=== PATIENT | male | born 1950 | race Caucasian/White ===

== ENCOUNTER 2017-09-04 19:12 | Emergency (ER) | payer BC, MEDICARE ==
[2017-09-04] MEDS ORDERED: Albuterol/Ipratropium NEB.SOL* Albuterol 2.5 MG/Ipratropium 0.5 MG 3 ML INH ONE (20:52)
[2017-09-04] MEDS ORDERED: NS 0.9% 1000 ML* 1,000 ML IV SCH (21:00)
[2017-09-04 21:19] LABS: Hematocrit 48 % (42-52); Hemoglobin 16.4 g/dl (14.0-18.0); Mean Corpuscular HGB Conc 34 g/dl (31-36); Mean Corpuscular Hemoglobin 32 pg (27-31); Mean Corpuscular Volume 94 fL (80-94); Mean Platelet Volume 8 um3 (7.4-10.4); Red Blood Count 5.08 10^6/ul (4.0-5.4); Red Cell Distribution Width 14 % (10.5-15); White Blood Count 13.5 10^3/ul (3.5-10.8)
[2017-09-04 21:23] LABS: Add Diff/Slide Review? Slide Review Added; Comments Flag Yes
--- NOTE | 2017-09-04 21:23 | RAD ---
INDICATION: Shortness of breath. COMPARISON: Comparison is made with a prior study from October 22, 2016. TECHNIQUE: A portable view of the chest was obtained. FINDINGS: Cardiac and mediastinal contours appear to be within normal limits. The lungs are hyperinflated. There is mild prominence of the interstitial markings. No focal infiltrate or pleural effusion is seen. IMPRESSION: MILD INTERSTITIAL PROMINENCE SUGGESTING THE POSSIBILITY OF MILD INTERSTITIAL PULMONARY EDEMA.
[2017-09-04 21:35] LABS: Albumin 4.3 g/dL (3.2-5.2); BUN/Creatinine Ratio 15.8 (8-20); C Reactive Protein 165.84 mg/L (< 5.00); Calcium 9.7 mg/dL (8.6-10.3); EGFR African American 102.3 (>60); EGFR Non-African American 79.6 (>60); Globulin 3.5 g/dL (2-4); Magnesium 2.3 mg/dL (1.9-2.7); Potassium 4.2 mmol/L (3.5-5.0); Total Bilirubin 2.1 mg/dL (0.2-1.0); Total Protein 7.8 g/dL (6.4-8.9)
[2017-09-04 21:37] LABS: Troponin I 0.01 ng/mL (<0.04)
[2017-09-04 21:57] LABS: TSH (Thyroid Stimulating Horm) 2.36 mcIU/mL (0.34-5.60)
[2017-09-04] MEDS ORDERED: Albuterol HFA INHALER* 8 gm MDI INH PRN (23:01)
[2017-09-04 23:15] VITALS: BP 157/64
--- NOTE | 2017-09-04 23:25 | ED ---
Jean Garcia Nilda, scribed for Bernardo Santos MD on 09/04/17 at 2120 . Shortness of Breath - HPI Summary HPI Summary: This patient is a 66 year old M presenting to [facility] with a chief complaint of constant SOB for 1 week that has been worsening for the past 3 days. The patient rates the pain 2/10 in severity. Symptoms aggravated by exertion and alleviated by nothing. Patient reports productive cough (brown), fever, chills, diaphoresis, wheezing, chest tightness, MCCOY, and JIMENEZ. Patient denies ear ache, sore throat, and LOC. PMHx COPD. No PMHx PNA, DM, and HTN. - History of Current Complaint Chief Complaint: EDShortnessOfBreath Time Seen by Provider: 09/04/17 21:01 Hx Obtained From: Patient Onset/Duration: Sudden Onset Timing: Constant Current Severity: Moderate Dyspnea At: Exertion Aggrevating Factors: Movement Alleviating Factors: Nothing Associated Signs & Symptoms: Cough (Productive), Fever, Chills, Diaphoresis - Allergy/Home Medications Allergies/Adverse Reactions: Allergies Allergy/AdvReac Type Severity Reaction Status Date / Time No Known Allergies Allergy Verified 09/04/17 18:42 PMH/Surg Hx/FS Hx/Imm Hx Endocrine/Hematology History: Denies: Hx Diabetes Cardiovascular History: Denies: Hx Hypertension Respiratory History: Reports: Hx Chronic Obstructive Pulmonary Disease (COPD) - UNDAGNOSED Denies: Hx Pneumonia Sensory History: Reports: Hx Contacts or Glasses Opthamlomology History: Reports: Hx Contacts or Glasses Infectious Disease History: No Infectious Disease History: Denies: History Other Infectious Disease, Traveled Outside the [place] in Last 30 Days - Family History Known Family History: Positive: Diabetes - Social History Occupation: Employed Full-time Alcohol Use: Weekly Substance Use Type: Reports: None Smoking Status (MU): Heavy Every Day Tobacco Smoker Type: Cigarettes Amount Used/How Often: 1 pack daily Have You Smoked in the Last Year: Yes Review of Systems Positive: Fever, Chills, Skin Diaphoresis Negative: Sore Throat, Ear Ache Positive: Shortness Of Breath, Cough, Other - wheezing, chest tightness, JIMENEZ Neurological: Other - negative LOC Positive: Headache All Other Systems Reviewed And Are Negative: Yes Physical Exam - Summary Physical Exam Summary: Appearance: Plethora, Well-nourished, Obese Eyes: Normal ENT: Normal Neck: Supple, nontender Respiratory: Distant breath sounds, expiratory wheezes Cardiovascular: Distant heart sounds Abdomen: Soft, nontender Bowel: Present Musculoskeletal: Normal, Strength/ROM Intact, no edema Neurological:k Normal, A&Ox3 Psychiatric: Normal Triage Information Reviewed: Yes Vital Signs On Initial Exam: Initial Vitals Temp Pulse Resp BP Pulse Ox 99.6 F 96 24 186/78 95 09/04/17 19:19 09/04/17 19:19 09/04/17 19:19 09/04/17 19:19 09/04/17 19:19 Vital Signs Reviewed: Yes - [place] Coma Scale Coma Scale Total: 15 Diagnostics - Vital Signs Vital Signs Temp Pulse Resp BP Pulse Ox 09/04/17 21:00 92 24 151/57 96 09/04/17 20:30 91 22 159/70 96 09/04/17 20:00 94 21 144/68 96 09/04/17 19:53 102 24 155/70 96 09/04/17 19:47 100 21 96 09/04/17 19:19 99.6 F 96 24 186/78 95 - Laboratory Lab Results: Lab Results 09/04/17 09/04/17 09/04/17 Range/Units 21:05 21:05 21:05 WBC (3.5-10.8) 10^3/ul RBC (4.0-5.4) 10^6/ul Hgb (14.0-18.0) g/dl Hct (42-52) % MCV (80-94) fL MCH (27-31) pg MCHC (31-36) g/dl RDW (10.5-15) % Plt Count (150-450) 10^3/ul MPV (7.4-10.4) um3 Neut % (Auto) (38-83) % Lymph % (Auto) (25-47) % [place] % (Auto) (1-9) % Eos % (Auto) (0-6) % Baso % (Auto) (0-2) % Absolute Neuts (auto) (1.5-7.7) 10^3/ul Absolute Lymphs (auto) (1.0-4.8) 10^3/ul Absolute Monos (auto) (0-0.8) 10^3/ul Absolute Eos (auto) (0-0.6) 10^3/ul Absolute Basos (auto) (0-0.2) 10^3/ul Absolute Nucleated RBC 10^3/ul Nucleated RBC % INR (Anticoag Therapy) 0.87 L (0.89-1.11) APTT 27.5 (26.0-36.3) seconds D-Dimer, Quantitative 431 H (Less Than 230) ng/mL Sodium 132 L (133-145) mmol/L Potassium 4.2 (3.5-5.0) mmol/L Chloride 101 (101-111) mmol/L Carbon Dioxide 22 (22-32) mmol/L Anion Gap 9 (2-11) mmol/L BUN 15 (6-24) mg/dL Creatinine 0.95 (0.67-1.17) mg/dL Est GFR ( Amer) 102.3 (>60) Est GFR (Non-Af Amer) 79.6 (>60) BUN/Creatinine Ratio 15.8 (8-20) Glucose 111 H (70-100) mg/dL Lactic Acid (0.5-2.0) mmol/L Calcium 9.7 (8.6-10.3) mg/dL Magnesium 2.3 (1.9-2.7) mg/dL Total Bilirubin 2.10 H (0.2-1.0) mg/dL AST 19 (13-39) U/L ALT 18 (7-52) U/L Alkaline Phosphatase 77 (34-104) U/L Total Creatine Kinase 67 (10-223) U/L CK-MB (CK-2) 1.8 (0.6-6.3) ng/mL Troponin I 0.01 (<0.04) ng/mL C-Reactive Protein 165.84 H (< 5.00) mg/L B-Natriuretic Peptide 74 ( - 100) pg/mL Total Protein 7.8 (6.4-8.9) g/dL Albumin 4.3 (3.2-5.2) g/dL Globulin 3.5 (2-4) g/dL Albumin/Globulin Ratio 1.2 (1-3) Lipase 60 (11.0-82.0) U/L TSH 2.36 (0.34-5.60) mcIU/mL 09/04/17 09/04/17 Range/Units 21:05 21:05 WBC 13.5 H (3.5-10.8) 10^3/ul RBC 5.08 (4.0-5.4) 10^6/ul Hgb 16.4 (14.0-18.0) g/dl Hct 48 (42-52) % MCV 94 (80-94) fL MCH 32 H (27-31) pg MCHC 34 (31-36) g/dl RDW 14 (10.5-15) % Plt Count 179 (150-450) 10^3/ul MPV 8 (7.4-10.4) um3 Neut % (Auto) 72.5 (38-83) % Lymph % (Auto) 13.4 L (25-47) % [place] % (Auto) 13.2 H (1-9) % Eos % (Auto) 0.3 (0-6) % Baso % (Auto) 0.6 (0-2) % Absolute Neuts (auto) 9.8 H (1.5-7.7) 10^3/ul Absolute Lymphs (auto) 1.8 (1.0-4.8) 10^3/ul Absolute Monos (auto) 1.8 H (0-0.8) 10^3/ul Absolute Eos (auto) 0 (0-0.6) 10^3/ul Absolute Basos (auto) 0.1 (0-0.2) 10^3/ul Absolute Nucleated RBC 0.02 10^3/ul Nucleated RBC % 0.2 INR (Anticoag Therapy) (0.89-1.11) APTT (26.0-36.3) seconds D-Dimer, Quantitative (Less Than 230) ng/mL Sodium (133-145) mmol/L Potassium (3.5-5.0) mmol/L Chloride (101-111) mmol/L Carbon Dioxide (22-32) mmol/L Anion Gap (2-11) mmol/L BUN (6-24) mg/dL Creatinine (0.67-1.17) mg/dL Est GFR ( Amer) (>60) Est GFR (Non-Af Amer) (>60) BUN/Creatinine Ratio (8-20) Glucose (70-100) mg/dL Lactic Acid 0.8 (0.5-2.0) mmol/L Calcium (8.6-10.3) mg/dL Magnesium (1.9-2.7) mg/dL Total Bilirubin (0.2-1.0) mg/dL AST (13-39) U/L ALT (7-52) U/L Alkaline Phosphatase (34-104) U/L Total Creatine Kinase (10-223) U/L CK-MB (CK-2) (0.6-6.3) ng/mL Troponin I (<0.04) ng/mL C-Reactive Protein (< 5.00) mg/L B-Natriuretic Peptide ( - 100) pg/mL Total Protein (6.4-8.9) g/dL Albumin (3.2-5.2) g/dL Globulin (2-4) g/dL Albumin/Globulin Ratio (1-3) Lipase (11.0-82.0) U/L TSH (0.34-5.60) mcIU/mL Result Diagrams: 09/04/17 21:05 09/04/17 21:05 Lab Statement: Any lab studies that have been ordered have been reviewed, and results considered in the medical decision making process. - Radiology CXR Radiology Interpretation Completed By: Radiologist - CXR reveals mild interstitial prominence suggesting possibility of mild interstitial pulmonary edema. ED physician has reviewed this radiology report and agrees. Lateral CXR Radiology Interpretation Completed By: ED Physician - NAD. - EKG 2211 Cardiac Rate: NL - 94 bpm EKG Rhythm: Sinus Rhythm EKG Interpretation: No acute changes, possible old LA artifact Course/Dx - Course Course Of Treatment: This patient is a 66 year old M presenting to [facility] with a chief complaint of constant SOB for the past week that has been worsening for the past 3 days. The patient rates the pain 2/10 in severity. Symptoms aggravated by exertion and alleviated by nothing. Patient reports cough (brown) , fever, chills, diaphoresis, wheezing, chest tightness, MCCOY, and JIMENEZ. Patient denies ear ache, sore throat, and LOC. PMHx COPD. No PMHx PNA, DM, and HTN. CXR , per radiologist, reveals mild interstitial prominence suggesting possibility of mild interstitial pulmonary edema. EKG reveals no acute changes, NSR, 94 bpm , possible old LA artifact. Lateral CXR reveals NAD. Pt recieved breathing treatment (albuterol). Patient stable and will be D/C with a diagnosis of acute bronchitis and COPD exacerbation. Patient agreeable with this plan. - Diagnoses Provider Diagnoses: Acute bronchitis, COPD exacerbation Discharge - Discharge Plan Condition: Good Disposition: HOME Prescriptions: Budesonide/Formote 160/4.5(NF) [Symbicort 160/4.5 (NF)] 2 puff INH BID 60 Days Levofloxacin TAB* [Levaquin 500 Tab*] 500 mg PO DAILY #6 tab Referrals: No Primary Care Phys,NOPCP [Primary Care Provider] - The documentation as recorded by the Jean shell Nilda accurately reflects the service I personally performed and the decisions made by me, Bernardo Santos MD.
--- NOTE | 2017-09-05 07:45 | RAD ---
INDICATION: Fever and chills. Cough. Dyspnea. COMPARISON: September 04, 2017 TECHNIQUE: Single lateral view is submitted views were obtained. FINDINGS: There is hyperinflation with mild prominence of the interstitium. There is no focal consolidation. The lateral view shows no acute bony change. IMPRESSION: HYPERINFLATION WITH INTERSTITIAL PROMINENCE
== END 2017-09-04 23:15 | disposition home or self-care (01) ==
LOC: ED 19:12
DX: J20.9 Acute bronchitis, unspecified (principal); J44.1 Chronic obstructive pulmonary disease with (acute) exacerbation; R05 Cough; R50.9 Fever, unspecified; R06.00 Dyspnea, unspecified; R07.9 Chest pain, unspecified; F17.210 Nicotine dependence, cigarettes, uncomplicated; R00.0 Tachycardia, unspecified
CPT/HCPCS: 36415; 71010; 80053; 82550; 82553; 83605; 83690; 83735; 83880; 84443; 84484; 85025; 85379; 85610; 85730; 86140; 93005; 99212; 99283; A9270-GY; G0463

== ENCOUNTER 2019-03-11 12:20 | Emergency (ER) | payer BC, MEDICARE ==
[2019-03-11 12:34] VITALS: BP 176/76
--- NOTE | 2019-03-11 13:55 | UC ---
Respiratory Complaint HPI - HPI Summary HPI Summary: Pt presents with left side chest pain, pain worsens with deep breath, and coughing that began two days ago and worsened last night and this morning. Pt is a heavy everyday smoker, has cough, denies fever, chills. - History of Current Complaint Chief Complaint: UCRespiratory Stated Complaint: LEFT SIDE CHEST/BACK PAIN, CONGESTION Time Seen by Provider: 03/11/19 13:46 Hx Obtained From: Patient Onset/Duration: Sudden Onset, Lasting Days, Still Present Timing: Constant Severity Initially: Moderate Severity Currently: Mild Pain Intensity: 2 Character: Cough: Nonproductive Aggravating Factors: Exertion, Deep Breaths Associated Signs And Symptoms: Positive: Dyspnea, Wheezing, Nasal Congestion - Risk Factors Pulmonary Embolism Risk Factors: Smoking Cardiac Risk Factors: Smoking Pseudomonas Risk Factors: Chronic Lung Disease Tuberculosis Risk Factors: Smoking - Allergies/Home Medications Allergies/Adverse Reactions: Allergies Allergy/AdvReac Type Severity Reaction Status Date / Time No Known Allergies Allergy Verified 03/11/19 12:34 PMH/Surg Hx/FS Hx/Imm Hx Previously Healthy: Yes - Surgical History Surgical History: Yes Surgery Procedure, Year, and Place: T&A - Family History Known Family History: Positive: Diabetes, Respiratory Disease - Social History Occupation: Retired Lives: With Family Alcohol Use: Daily Substance Use Type: Marijuana Smoking Status (MU): Heavy Every Day Tobacco Smoker Type: Cigarettes Amount Used/How Often: 1 pack daily Have You Smoked in the Last Year: Yes Household Exposure Type: Cigarettes Review of Systems All Other Systems Reviewed And Are Negative: Yes Constitutional: Positive: Fatigue Skin: Positive: Negative Eyes: Positive: Negative ENT: Positive: Sinus Congestion Respiratory: Positive: Shortness Of Breath, Cough Cardiovascular: Positive: Chest Pain Gastrointestinal: Positive: Negative Genitourinary: Positive: Negative Motor: Positive: Negative Musculoskeletal: Positive: Myalgia Neurological: Positive: Negative Psychological: Positive: Negative Is Patient Immunocompromised?: No Physical Exam Triage Information Reviewed: Yes Appearance: Well-Appearing Vital Signs: Initial Vital Signs Temp 98.3 F 03/11/19 12:29 Pulse 94 03/11/19 12:29 Resp 18 03/11/19 12:29 BP 176/76 03/11/19 12:29 Pulse Ox 97 03/11/19 12:29 Vital Signs Reviewed: Yes Eye Exam: Normal ENT: Positive: Nasal congestion Dental Exam: Normal Neck exam: Normal Respiratory: Positive: Decreased breath sounds, Crackles, Wheezing Cardiovascular Exam: Normal Abdominal Exam: Normal Musculoskeletal Exam: Normal Neurological Exam: Normal Psychological Exam: Normal Skin Exam: Normal Diagnostics - Radiology No standard instances Radiology Interpretation Completed By: Radiologist - IMPRESSION: COPD WITH INTERVAL DEVELOPMENT OF A LEFT HILAR MASS MEASURING UP TO 5 CM IN SIZE. RECOMMEND CONSIDERATION OF FURTHER EVALUATION WITH CONTRAST ENHANCED CT OF THE CHEST. Respiratory Course/Dx - Course Course Of Treatment: I discussed with the pt the need to establish care with a PCP as soon as possible. I discussed the xray report with the pt and my concerns for cancer. Pt did not seem to understand but agreed to plan of care. - Differential Dx/Diagnosis Differential Diagnosis/HQI/PQRI: Bronchitis, Pulmonary Embolism Provider Diagnosis: Mass of lung Discharge - Sign-Out/Discharge Documenting (check all that apply): Patient Departure All imaging exams completed and their final reports reviewed: Yes - Discharge Plan Condition: Stable Disposition: HOME Prescriptions: Albuterol HFA INHALER* [Ventolin HFA Inhaler*] 2 puff INH Q4H PRN #1 mdi PRN Reason: Sob/Wheezing DOXYcycline CAP(*) [DOXYcycline 100MG CAP(*)] 100 mg PO Q12H #20 cap predniSONE TAB* [Deltasone 10 MG TAB*] 40 mg PO DAILY #20 tab Patient Education Materials: Pulmonary Nodules (ED), Shortness of Breath (ED) Referrals: [facility] [place] PHYSICIAN REFERRAL [Outside] - As Soon As Possible No Primary Care Phys,NOPCP [Primary Care Provider] - Additional Instructions: PLEASE CALL THE NUMBER ON THIS PAPER TO ESTABLISH CARE WITH A PCP SOON POSSIBLE. - Billing Disposition and Condition Condition: STABLE Disposition: Home
== END 2019-03-11 14:36 | disposition home or self-care (01) ==
LOC: UCCORT 12:20
DX: R91.1 Solitary pulmonary nodule (principal); F17.290 Nicotine dependence, other tobacco product, uncomplicated; J44.9 Chronic obstructive pulmonary disease, unspecified
CPT/HCPCS: 71046; 93005; 99212; G0463

== ENCOUNTER → 2019-04-15 10:51 | Day surgery (SDC) | payer OTHER, MEDICARE ==
[~2019-04-15 10:51] MED LIST: Benzocaine/Butamben/Tetracain (CETACAINE - SINGLE USE) 5 gm TOPICAL ONE; Buffered Lidocaine 1% SYRIN* 1 ML/SYRINGE INTRADERM ONE; Dexamethasone IV* 4 MG/ML 1 ML (4 MG) IV SLOW PU ONE; Dexamethasone IV* 4 MG/ML 1 ML (4 MG) ONE; DiMENhydriNATE IV* 50 MG/ML VIAL IV PUSH PRN; Famotidine IV* 10 MG/ML 2 ML (20 mg) IV ONE; Famotidine IV* 10 MG/ML 2 ML (20 mg) ONE; Lactated Ringers 1000 ML Bag* 1,000 ML IV SCH; Lidocaine 2% PF * 5 ML VIAL ONE; Midazolam* 1 MG/ML 2 ML VIAL (2 MG) ONE; Naloxone* 0.4 MG/ML 1 ML VIAL IV PRN; Propofol* 10 MG/ML 20 ML BTL ONE; Remifentanil* 2 MG VIAL ONE; Succinylcholine* 20 MG/ML 10 ML VIAL ONE; fentaNYL* 50 MCG/ML 2 ML VIAL (100 MCG VIAL) IV PRN
[2019-04-15 15:33] VITALS: BP 169/79
--- NOTE | 2019-04-15 16:00 | PRO ---
BRONCHOSCOPY REPORT: DATE OF PROCEDURE: 04/15/19 - [facility] PROCEDURE PERFORMED: Bronchoscopy with endobronchial ultrasound-guided fine needle aspiration from mediastinal and hilar node and endobronchial biopsy from left upper lobe. PREPROCEDURAL DIAGNOSIS: Hilar mass. ANESTHESIA: General anesthesia. ANESTHESIOLOGIST: Dr. José. DESCRIPTION OF PROCEDURE: Informed consent was obtained from the patient prior to the procedure after all the risks and benefits were thoroughly explained. Appropriate time-out was agreed on by attending staff prior to the procedure. The patient was intubated with size 8.5 endotracheal tube. Flexible bronchoscope was inserted through ET tube for airway inspection. ET tube positioning confirmed to be 2.5 cm above the level of fazal. The ET tube was then advanced into the right bronchial tree, which was inspected. No endobronchial lesions were noted. Thin secretions were noted and suctioned out. Bronchoscope was then advanced into left bronchial tree, which was then inspected. No obvious endobronchial lesion was noted; however, there was evidence of mucosal irregularity in left upper lobe bronchus and into the lingular area without significant narrowing of those airways. Bronchoscope was then withdrawn and EBUS bronchoscope was inserted. Station R4 was minimally enlarged and was accessed with 2 passes. Rapid onsite evaluation did not reveal enough lymphatic tissue. Station 7 was then accessed with 4 passes. Rapid onsite evaluation revealed lymphatic tissue and malignant cells on the second pass. Air-dried slides were also prepared. Bronchoscope was then advanced into the left side. L4 was not significantly enlarged. Station L10 was significantly enlarged and was accessed also with 4 passes. Rapid onsite evaluation revealed malignant cells on the second and third passes. Bronchoscope was then withdrawn and regular Olympus bronchoscope was reinserted and endobronchial biopsies were obtained from the left upper lobe area. Minimal bleeding occurred. Bronchoscope was then withdrawn. The patient was extubated and seen in recovery in optimal condition. The patient patient tolerated the procedure well. [id number]/[facility] #: [id number] [facility]
== END | disposition home or self-care (01) ==
LOC: OR 10:51
PROVIDERS: ATTEND Internal Medicine
DX: J98.4 Other disorders of lung (principal); C77.1 Secondary and unspecified malignant neoplasm of intrathoracic lymph nodes; R91.8 Other nonspecific abnormal finding of lung field; J44.9 Chronic obstructive pulmonary disease, unspecified; F17.210 Nicotine dependence, cigarettes, uncomplicated
CPT/HCPCS: 81445; 88172; 88173; 88177; 88305; 88341; 88342; 88360; J0330; J1100; J2250; J2704